=== PATIENT | female | born 1980 | race Caucasian/White ===

== ENCOUNTER 2020-10-30 09:40 | Emergency (ER) | payer MEDICAID ==
[~2020-10-30] VITALS: Ht 154.9 cm; Wt 69.8 kg
[2020-10-30 09:43] VITALS: BP 143/95
--- NOTE | 2020-10-30 09:57 | NUR ---
Patient seeking medical clearance for [place] [facility], last used methamphetamines today, denies any symptoms.
== END 2020-10-30 10:14 | disposition home or self-care (01) ==
LOC: ER 09:42
DX: Z02.89 Encounter for other administrative examinations (principal); F15.90 Other stimulant use, unspecified, uncomplicated
CPT/HCPCS: 99281